=== PATIENT | female | born 1930 | race Caucasian/White ===

== ENCOUNTER 2016-09-23 16:54 | Emergency (ER) | payer MEDICARE, BC ==
[2016-09-23 17:06] VITALS: RESP 18
[2016-09-23] MEDS ORDERED: SODIUM CHLORIDE 0.9% 500 ML IV STA (17:25)
--- NOTE | 2016-09-23 17:29 | ED ---
General Adult HPI - General Chief complaint: Weakness Stated complaint: diarrhea Time Seen by Provider: 09/23/16 17:16 Source: patient, family, RN notes reviewed Mode of arrival: wheelchair Limitations: no limitations - History of Present Illness Initial comments: 85-year-old female presents to the emergency department with a chief complaint of diarrhea weakness and urinary frequency. Her last few days the patient has had increased urination and diarrhea. She states that she is just feels very weak and rundown. They state that today she just said she was so weak she thought she should be seen by one which is unusual for her so they brought her here. Patient states she has no pain. Patient states she hasn't had diarrhea today. Patient states she does just having to urinate. Per family her urine does have a increased odor. They state that she has had multiple times where she has had to be helped to the floor that she just felt weak as well they were concerned. Patient denies any lightheadedness she denies any chest pain or shortness of breath this. They state there is no actual fall. Patient denies any other symptoms. Patient denies any recent fever, chills, shortness of breath , chest pain, back pain, abdominal pain, nausea vomiting, numbness or tingling,= headaches or visual changes, or any other current symptoms. - Related Data Home Medications Medication Instructions Recorded Confirmed Aspirin 81 mg PO HS 01/15/14 09/23/16 Atorvastatin [Lipitor] 20 mg PO DAILY 01/15/14 09/23/16 Metoprolol Succinate (ER) [Toprol 100 mg PO DAILY 01/20/14 09/23/16 XL] Mirabegron [Myrbetriq] 50 mg PO HS 09/06/15 09/23/16 Apixaban [Eliquis] 2.5 mg PO BID 09/23/16 09/23/16 Cholecalciferol [Vitamin D3] 1,000 unit PO DAILY 09/23/16 09/23/16 Hydrochlorothiazide [Hydrodiuril] 25 mg PO DAILY 09/23/16 09/23/16 Magnesium Chloride [Slow Mag] 64 mg PO BID 09/23/16 09/23/16 Memantine HCl/Donepezil HCl 1 cap PO DAILY 09/23/16 09/23/16 [Namzaric 28 mg-10 mg Capsule] Metoprolol Succinate (ER) [Toprol 50 mg PO HS 09/23/16 09/23/16 Xl] metFORMIN HCL [Glucophage] 500 mg PO DAILY 09/23/16 09/23/16 traZODone HCL 50 mg PO HS 09/23/16 09/23/16 Allergies Allergy/AdvReac Type Severity Reaction Status Date / Time clindamycin AdvReac Unknown Diarrhea Verified 09/23/16 17:49 (severe) Penicillins AdvReac Unknown Verified 09/23/16 17:49 Childhood Review of Systems ROS Statement: Those systems with pertinent positive or pertinent negative responses have been documented in the HPI. ROS Other: All systems not noted in ROS Statement are negative. Past Medical History Past Medical History: Coronary Artery Disease (CAD), Chest Pain / Angina, Diabetes Mellitus, Hyperlipidemia, Hypertension, Liver Disease, Memory Impairment, Osteoarthritis (OA) Additional Past Medical History / Comment(s): "FATTY LIVER",MEMORY IMPAIRMENT AT TIMES PAST HX C-DIFF,HX SICK SINUS SYNDROME, SVT. History of Any Multi-Drug Resistant Organisms: None Reported Date of last positivie culture/infection: more than 5 years ago MDRO Source:: stool Past Surgical History: Ablation, Breast Surgery, Cholecystectomy, Hysterectomy, Pacemaker, Tonsillectomy Additional Past Surgical History / Comment(s): BREAST BIOPSY,PACEMAKER Past Anesthesia/Blood Transfusion Reactions: No Reported Reaction Additional Past Anesthesia/Blood Transfusion Reaction / Comment(s): Never recieved blood. Type of Cardiac Device: Permanent Pacemaker Device Placement Date:: medtronic august 2011 Past Psychological History: No Psychological Hx Reported Smoking Status: Never smoker Past Alcohol Use History: Rare Past Drug Use History: None Reported - Past Family History Mother Family Medical History: Cancer Additional Family Medical History / Comment(s): Mother at age 95 of ovarian cancer. General Exam Limitations: no limitations General appearance: alert, in no apparent distress Head exam: Present: atraumatic, normocephalic, normal inspection Eye exam: Present: normal appearance, PERRL, EOMI. Absent: scleral icterus, conjunctival injection, periorbital swelling ENT exam: Present: normal exam, normal oropharynx, mucous membranes moist Neck exam: Present: normal inspection. Absent: tenderness, meningismus, lymphadenopathy Respiratory exam: Present: normal lung sounds bilaterally. Absent: respiratory distress, wheezes, rales, rhonchi, stridor Cardiovascular Exam: Present: regular rate, normal rhythm, normal heart sounds. Absent: systolic murmur, diastolic murmur, rubs, gallop, clicks GI/Abdominal exam: Present: soft, normal bowel sounds. Absent: distended, tenderness, guarding, rebound, rigid Neurological exam: Present: alert, oriented X3 Psychiatric exam: Present: normal affect, normal mood Skin exam: Present: warm, dry, intact, normal color. Absent: rash Course Vital Signs 09/23/16 09/23/16 09/23/16 17:01 18:00 19:12 Temperature 97.6 F 98.4 F Pulse Rate 67 91 Pulse Rate [ 65 Sitting Pulse Oximetery] Pulse Rate [ 72 Standing Pulse Oximetery] Pulse Rate [ 66 Supine Pulse Oximetery] Respiratory 18 18 Rate Blood Pressure 117/67 149/79 Blood Pressure 156/70 [Right Arm Sitting] Blood Pressure 145/70 [Right Arm Standing] Blood Pressure 145/65 [Right Arm Supine] O2 Sat by Pulse 97 95 Oximetry Medical Decision Making - Medical Decision Making 85-year-old female presents to the emergency department with a chief complaint of weakness and increased frequency of urination. At this time patient's lab work reviewed. At this time patient did recently start trazodone just have a side effect of generalized fatigue. Patient does have a history of frequency of urination per the family to seek medication for it just did not know if that was made it was causing her weakness. This time we discussed that her lab work does not show any acute findings 6 finger symptoms. We discussed close follow- up with her doctor. We discussed discussing her doctor about possibly trying to stop the trazodone. We did discuss close follow-up this return for follow- up. Patient and family stated the Chris operations have been answered. They will be discharged home. - Lab Data Result diagrams: 09/23/16 17:30 09/23/16 17:40 Lab Results 09/23/16 09/23/16 09/23/16 Range/Units 17:25 17:25 17:30 WBC 6.3 (3.8-10.6) k/uL RBC 5.09 (3.80-5.40) m/uL Hgb 15.8 (11.4-16.0) gm/dL Hct 46.7 H (34.0-46.0) % MCV 91.7 (80.0-100.0) fL MCH 31.1 (25.0-35.0) pg MCHC 33.9 (31.0-37.0) g/dL RDW 13.5 (11.5-15.5) % Plt Count 121 L (150-450) k/uL Neutrophils % 59 % Lymphocytes % 27 % Monocytes % 8 % Eosinophils % 2 % Basophils % 1 % Neutrophils # 3.7 (1.3-7.7) k/uL Lymphocytes # 1.7 (1.0-4.8) k/uL Monocytes # 0.5 (0-1.0) k/uL Eosinophils # 0.1 (0-0.7) k/uL Basophils # 0.0 (0-0.2) k/uL PT (9.0-12.0) sec INR (<1.2) APTT (22.0-30.0) sec Sodium (137-145) mmol/L Potassium (3.5-5.1) mmol/L Chloride (98-107) mmol/L Carbon Dioxide (22-30) mmol/L Anion Gap mmol/L BUN (7-17) mg/dL Creatinine (0.52-1.04) mg/dL Est GFR (MDRD) Af Amer (>60 ml/min/1.73 sqM) Est GFR (MDRD) Non-Af (>60 ml/min/1.73 sqM) Glucose (74-99) mg/dL Plasma Lactic Acid Will 1.2 (0.7-2.0) mmol/L Calcium (8.4-10.2) mg/dL Phosphorus (2.5-4.5) mg/dL Magnesium (1.6-2.3) mg/dL Total Bilirubin (0.2-1.3) mg/dL AST (14-36) U/L ALT (9-52) U/L Alkaline Phosphatase (38-126) U/L Troponin I <0.012 (0.000-0.034) ng/mL Total Protein (6.3-8.2) g/dL Albumin (3.5-5.0) g/dL Amylase (30-110) U/L Lipase (23-300) U/L Urine Color Urine Appearance (Clear) Urine pH (5.0-8.0) Ur Specific [place] (1.001-1.035) Urine Protein (Negative) Urine Glucose (UA) (Negative) Urine Ketones (Negative) Urine Blood (Negative) Urine Nitrite (Negative) Urine Bilirubin (Negative) Urine Urobilinogen (<2.0) mg/dL Ur Leukocyte Esterase (Negative) 09/23/16 09/23/16 09/23/16 Range/Units 17:40 19:00 19:00 WBC (3.8-10.6) k/uL RBC (3.80-5.40) m/uL Hgb (11.4-16.0) gm/dL Hct (34.0-46.0) % MCV (80.0-100.0) fL MCH (25.0-35.0) pg MCHC (31.0-37.0) g/dL RDW (11.5-15.5) % Plt Count (150-450) k/uL Neutrophils % % Lymphocytes % % Monocytes % % Eosinophils % % Basophils % % Neutrophils # (1.3-7.7) k/uL Lymphocytes # (1.0-4.8) k/uL Monocytes # (0-1.0) k/uL Eosinophils # (0-0.7) k/uL Basophils # (0-0.2) k/uL PT 12.5 H (9.0-12.0) sec INR 1.3 H (<1.2) APTT 26.1 (22.0-30.0) sec Sodium 141 (137-145) mmol/L Potassium 4.0 (3.5-5.1) mmol/L Chloride 106 (98-107) mmol/L Carbon Dioxide 24 (22-30) mmol/L Anion Gap 11 mmol/L BUN 21 H (7-17) mg/dL Creatinine 1.10 H (0.52-1.04) mg/dL Est GFR (MDRD) Af Amer 57 (>60 ml/min/1.73 sqM) Est GFR (MDRD) Non-Af 47 (>60 ml/min/1.73 sqM) Glucose 89 (74-99) mg/dL Plasma Lactic Acid Will (0.7-2.0) mmol/L Calcium 9.3 (8.4-10.2) mg/dL Phosphorus 4.2 (2.5-4.5) mg/dL Magnesium 2.0 (1.6-2.3) mg/dL Total Bilirubin 0.9 (0.2-1.3) mg/dL AST 30 (14-36) U/L ALT 38 (9-52) U/L Alkaline Phosphatase 51 (38-126) U/L Troponin I (0.000-0.034) ng/mL Total Protein 6.5 (6.3-8.2) g/dL Albumin 3.7 (3.5-5.0) g/dL Amylase 74 (30-110) U/L Lipase 269 (23-300) U/L Urine Color Yellow Urine Appearance Clear (Clear) Urine pH 5.5 (5.0-8.0) Ur Specific [place] 1.012 (1.001-1.035) Urine Protein Negative (Negative) Urine Glucose (UA) Negative (Negative) Urine Ketones Negative (Negative) Urine Blood Negative (Negative) Urine Nitrite Negative (Negative) Urine Bilirubin Negative (Negative) Urine Urobilinogen <2.0 (<2.0) mg/dL Ur Leukocyte Esterase Negative (Negative) - Radiology Data Radiology results: report reviewed, image reviewed Disposition Clinical Impression: Weakness, Medication side effect Disposition: HOME SELF-CARE Condition: Stable Instructions: Weakness (ED) Additional Instructions: Please use medication as discussed. Please follow up with family doctor if symptoms have not improved over the next two days. Please return to the emergency room if your symptoms increase or worsen or for any other concerns. Referrals: Cayetano Moody DO [Primary Care Provider] - 1-2 days Time of Disposition: 19:29
[2016-09-23 17:47] LABS: Basophils % (A) 1 %; CH 30.1; Eosinophils # (A) 0.1 k/uL (0-0.7); Eosinophils % (A) 2 %; HCT 46.7 % (34.0-46.0); HDW 2.37; HGB 15.8 gm/dL (11.4-16.0); Luc # (Auto) 0.18; Luc % (Auto) 3; Lymphocytes # (A) 1.7 k/uL (1.0-4.8); Lymphocytes % (A) 27 %; MCH 31.1 pg (25.0-35.0); MCHC 33.9 g/dL (31.0-37.0); MCV 91.7 fL (80.0-100.0); Mean Platelet Volume 8.5; Monocytes # (A) 0.5 k/uL (0-1.0); Monocytes % (A) 8 %; Neutrophils # (A) 3.7 k/uL (1.3-7.7); Neutrophils % (A) 59 %; RBC 5.09 m/uL (3.80-5.40); RDW 13.5 % (11.5-15.5); WBC 6.3 k/uL (3.8-10.6); WBC (Perox) 6.53
[2016-09-23 18:06] LABS: INR 1.3 (<1.2); Partial Thromboplastin Time 26.1 sec (22.0-30.0); Prothrombin Time 12.5 sec (9.0-12.0)
[2016-09-23 18:07] LABS: Calcium 9.3 mg/dL (8.4-10.2); Phosphorous 4.2 mg/dL (2.5-4.5); Total Bilirubin 0.9 mg/dL (0.2-1.3); Total Protein 6.5 g/dL (6.3-8.2)
--- NOTE | 2016-09-23 19:07 | XR ---
EXAMINATION TYPE: XR chest 2V DATE OF EXAM: 09/23/2016 COMPARISON: 01/19/2014 HISTORY: 85-year-old female with cough TECHNIQUE: AP and lateral views FINDINGS: Heart is upper limits of normal in size. Aorta and pulmonary vasculature within normal limits. Mild d iffuse interstitial prominence has a chronic appearance. Left anterior chest wall pacemaker generator with right atrial and right ventricular leads. No consolidation or pleural effusion. Full-thickness rotator cuff tears on both sides. IMPRESSION: Chronic changes and borderline heart size. No acute process seen.
--- NOTE | 2016-09-23 19:10 | XR ---
EXAMINATION TYPE: XR abdomen 2V DATE OF EXAM: 09/23/2016 CLINICAL DATA: 85-year-old female with pain, [facility] COMPARISON: None FINDINGS: Cholecystectomy clips. No evidence for free intraperitoneal air. No dilated small bowel or air-fluid levels. Scattered air and stool seen throughout the colon extendi ng distally into the rectum. Mild to moderate stool burden. No suspicious calcifications identified. IMPRESSION: Mild to moderate stool. No evidence of bowel obstruction or free intraperitoneal air.
[2016-09-23 19:13] VITALS: BP 149/79; PULSE 91; TEMP 98.4
[2016-09-23 19:17] LABS: Appearance,Urine Clear (Clear); Bilirubin,Urine Negative (Negative); Glucose,Urine (UA) Negative (Negative); Ketones,Urine Negative (Negative); Leukocyte Esterase,Urine Negative (Negative); Nitrite,Urine Negative (Negative); PH, Urine 5.5 (5.0-8.0); Protein,Urine Negative (Negative); Specific Gravity,Urine 1.012 (1.001-1.035); UA Billing (MACRO vs. MICRO) CHEM; Urobilinogen,Urine <2.0 mg/dL (<2.0)
== END 2016-09-23 19:51 | disposition home or self-care (01) ==
LOC: EC 16:54 → SUPCPDRO 16:54 → EC 19:51
DX: R53.1 Weakness (principal); T43.211A Poisoning by selective serotonin and norepinephrine reuptake inhibitors, accidental (unintentional), initial encounter; R19.7 Diarrhea, unspecified; R35.0 Frequency of micturition; I25.10 Atherosclerotic heart disease of native coronary artery without angina pectoris; E11.9 Type 2 diabetes mellitus without complications; E78.5 Hyperlipidemia, unspecified; I10 Essential (primary) hypertension; M19.90 Unspecified osteoarthritis, unspecified site; Z79.82 Long term (current) use of aspirin; Z79.84 Long term (current) use of oral hypoglycemic drugs; Z79.899 Other long term (current) drug therapy; Z88.0 Allergy status to penicillin; Z88.1 Allergy status to other antibiotic agents
CPT/HCPCS: 36415; 71020; 74020; 80053; 81003; 82150; 83605; 83690; 83735; 84100; 84484; 85025; 85610; 85730; 87040; 87086; 96360; 99285